=== PATIENT | female | born 1945 | race Caucasian/White ===

== ENCOUNTER → 2016-03-24 | Outpatient (CLI) | payer MEDICARE, BC ==
[~2016-03-24] MED LIST: ASPI-482 PO; CONTRAST GIVEN MC PRN; DULO60CA6 PO; FLUC150T PO; FURO40TA4 PO; GABA-585 PO; GLIP5TAB10 PO; HYDR25TA9 PO; IOHEXOL 300 MG/ML 50 ML VIAL. IT ONE; LIDOCAINE 1% Multi-Dose 20 ML VIAL. ID ONE; LISI10TA2 PO; LOSA50TA6 PO; METF500T4 PO; NYST1000 PO; OXYC5TAB PO; POTA20TA82 PO; PRAV10TA2 PO; TRAZ50TA15 PO
--- NOTE | 2016-03-24 10:06 | KCIC ---
PROCEDURE Fluoroscopic guided lumbar puncture for thoracic CT myelography; thoracic spine CT myelogram. HISTORY Lumbar radiculopathy and upper and lower thoracic pain. Stimulator operative planning. TECHNIQUE The risks of the procedure were discussed with the patient and written and verbal consent was obtained. A time-out was performed. Fluoroscopic imaging of the lumbar spine was performed and a site overlying L3-L4 was selected for needle entry. The skin was sterilely prepped, draped and infiltrated with 1 percent lidocaine. A 25 gauge spinal needle was then advanced into the thecal space and appropriate needle tip positioning was confirmed with spontaneous yield of cerebral spinal fluid within the needle hub. 10 cc Omnipaque 300 intrathecal contrast was injected. The needle was removed and a sterile bandage was placed at the needle entry site. The total fluoroscopy time was 1 minutes 20 seconds. Two fluoroscopic images were obtained. The patient was transferred to the CT suite for the post injection CT portion of the exam. One or more of the following individualized dose reduction techniques were utilized for this examination: 1. Automated exposure control; 2. Adjustment of the mA and/or kV according to patient size; 3. Use of iterative reconstruction technique. The patient tolerated the procedure without difficulty and was discharged in stable condition. COMPARISON MRI performed at an outside facility on 09/18/2015. 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 For the purposes of this dictation, there will be considered 12 thoracic segments, the inferior-most of which has hypoplastic ribs. There is mild S-shaped thoracolumbar curvature. There is no significant thoracic listhesis. The thoracic vertebral bodies are normal in height. There is degenerative endplate remodeling at multiple thoracic levels, including anterior endplate osteophytosis. The conus terminates at T12-L1. There is dorsal deviation of the thoracic cord at T9-T10 on sagittal images. This is likely due to slight motion during image acquisition given the absence of a space occupying lesion in this location such as an arachnoid cyst. The imaging appearance does not favor thoracic cord herniation. The spinal cord maintains normal caliber. There is a left cardiac pacemaker. There is cardiomegaly. There is lower lobe predominant atelectasis within both lungs. There is no infiltrate or effusion. There are postoperative changes involving the stomach, partially included on the field of view. There is degenerative endplate remodeling with disc space narrowing, vacuum phenomenon and osteophytosis at C5-C6, resulting in left foraminal stenosis. No thoracic disc herniation is seen. There is mild bilateral foraminal stenosis at T10-T11 secondary to endplate changes and facet arthropathy. There is partial visualization of non instrumented fusion at the lumbar levels. This is better characterized on the MRI dated 09/18/2015. IMPRESSION 1. Transitional thoracolumbar anatomy. 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 For this dictation, there are suspected 12 paired thoracic ribs. There is also a transitional lumbosacral segment, characterized on the MRI dated 09/18/2015. 2. Dorsal deviation of the thoracic cord at T9-T10, without a space occupying lesion or a change in cord caliber. This is due to motion during image acquisition at this level rather than an alternative etiology such as an arachnoid cyst or thoracic cord herniation, especially given the absence of this finding on the recent MRI. 3. Mild degenerative change throughout the thoracic spine, with mild bilateral foraminal stenosis at T10-T11. No thoracic disc herniation or significant central canal stenosis is seen. 4. Degenerative change at C5-C6, incompletely evaluated on the current exam. 5. Postoperative changes involving the lumbar spine, incompletely evaluated on the current exam. Electronically signed by: Brii Storm (Mar 24, 2016 10:04:56)
== END | disposition home or self-care (01) ==
LOC: KCIC 08:00
PROVIDERS: ATTEND Neurological Surgery
DX: M54.16 Radiculopathy, lumbar region (principal); I51.7 Cardiomegaly; M48.04 Spinal stenosis, thoracic region; M12.88 Other specific arthropathies, not elsewhere classified, other specified site; M50.322 Other cervical disc degeneration at C5-C6 level; M47.894 Other spondylosis, thoracic region; J98.11 Atelectasis
CPT/HCPCS: 72129; 72255; Q9967